=== PATIENT | female | born 1965 | race Caucasian/White ===

== ENCOUNTER 2022-04-23 06:08 | Day surgery (SDC) | payer OTHER ==
[~2022-04-23] VITALS: Ht 152.4 cm; Wt 84.5 kg
[2022-04-23] MEDS ORDERED: BENZOCAINE 20% 50 MCG/SPRAY 57 GM TP ONE (06:09)
[2022-04-23] MEDS ORDERED: LIDOCAINE 2% 11 ML JELLY TP ONE (06:09)
[2022-04-23] MEDS ORDERED: LIDOCAINE 4% 50 ML SOLUTION TP ONE (06:09)
[2022-04-23] MEDS ORDERED: SODIUM CHLORIDE 0.9% 1,000 ML ONE (06:40)
[2022-04-23 06:54] LABS: COVID AG,FIA SOURCE NASAL SWAB
[2022-04-23] MEDS ORDERED: SODIUM CHLORIDE 0.9% 1,000 ML IV ONE (07:00)
[2022-04-23] MEDS ORDERED: MONT-40 PO (07:10)
[2022-04-23] MEDS ORDERED: HYDR-4061 PO (07:10)
[2022-04-23] MEDS ORDERED: ALBU6.7H14 IH (07:10)
[2022-04-23] MEDS ORDERED: ATOR40TA71 PO (07:10)
[2022-04-23] MEDS ORDERED: METF-1211 PO (07:10)
[2022-04-23] MEDS ORDERED: FLUT16H NASAL (07:10)
[2022-04-23] MEDS ORDERED: BECL10.62 IH (07:10)
[2022-04-23] MEDS ORDERED: FAMO20TA8 PO (07:10)
[2022-04-23] MEDS ORDERED: DOXY-469 PO (07:10)
[2022-04-23] MEDS ORDERED: MIDAZOLAM HCL 2 MG/2 ML VIAL ONE (07:58)
[2022-04-23] MEDS ORDERED: FentaNYL CITRATE PF 100 MCG/2 ML VIAL ONE (07:59)
[2022-04-23 08:25] LABS: GLUCOMETER DEV NAME(LOC) SDS.; GLUCOSE,POINT OF CARE 115 MG/DL (70-110)
[2022-04-23] MEDS ORDERED: MethylPREDNISolone SOD SUCC 125 MG/2 ML VIAL ONE (09:24)
[2022-04-23] MEDS ORDERED: MethylPREDNISolone SOD SUCC 125 MG/2 ML VIAL IVP ONE (09:30)
[2022-04-23] MEDS ORDERED: OXYGEN THERAPY IH SCH (20:00)
== END 2022-04-23 10:32 | disposition home or self-care (01) ==
LOC: SURGERY 06:08
PROVIDERS: ATTEND Internal Medicine Critical Care Medicine
DX: J38.4 Edema of larynx (principal); B37.0 Candidal stomatitis; Z79.899 Other long term (current) drug therapy; Z88.8 Allergy status to other drugs, medicaments and biological substances; Z90.710 Acquired absence of both cervix and uterus; Z90.49 Acquired absence of other specified parts of digestive tract; Z98.890 Other specified postprocedural states; Z20.822 Contact with and (suspected) exposure to COVID-19
CPT/HCPCS: 31623; 88112; 82962; 87101; 87220; 87070; 88305; 31624; 71045; 87015; 87426; 87206; J3010; J2250; J2930; Q9967; J7030; C9803; Z7610